=== PATIENT | male | born 1995 | race Caucasian/White ===

== ENCOUNTER 2017-05-13 01:00 | Emergency (ER) | payer OTHER ==
--- NOTE | 2017-05-13 01:04 | EDPHY ---
H & P HPI/ROS: HPI CHIEF COMPLAINT: Itchy rash HISTORY OF PRESENT ILLNESS: Patient otherwise healthy 21-year-old male, he presents emergency room with a pruritic urticaria looking rash diffusely. He denies any trouble swallowing. Denies trouble breathing. Denies chest pain shortness of breath or abdominal pain nausea vomiting. He states that he ate barbecue from [employer] this evening around 8:30 p.m. he developed itching of his skin. He looked down noticed a rash. He has urticaria diffusely. No previous history of allergic reactions. He decided come the emergency room is 1 :15 a.m.. He denies any chest pain shortness of breath trouble swallowing trouble breathing abdominal pain nausea vomiting. Past Medical History: No significant medical history Past Surgical History: Knee surgery Social History: Denies daily use drugs alcohol tobacco. [employer] student Family History: Noncontributory ROS REVIEW OF SYSTEMS: A comprehensive 10 point review of systems is otherwise negative aside from elements mentioned in the history of present illness. Exam Constitutional triage nursing summary reviewed, vital signs reviewed, awake/ alert. Eyes normal conjunctivae and sclera, EOMI, PERRLA. HENT oropharynx is normal. Uvula midline. No swelling. normal inspection, atraumatic, moist mucus membranes, no epistaxis, neck supple/ no meningismus, no raccoon eyes. Respiratory clear to auscultation bilaterally, normal breath sounds, no respiratory distress, no wheezing. Cardiovascular rate normal, regular rhythm, no murmur, no edema, distal pulses normal. Gastrointestinal soft, non-tender, no rebound, no guarding, normal bowel sounds, no distension, no pulsatile mass. Genitourinary no CVA tenderness. Musculoskeletal no midline vertebral tenderness, full range of motion, no calf swelling, no tenderness of extremities, no meningismus, good pulses, neurovascularly intact. Skin diffuse urticaria Neurologic awake, alert and oriented x 3, AAOx3, moves all 4 extremities equally, motor intact, sensory intact, CN II-XII intact, normal cerebellar, normal vision, normal speech. Psychiatric normal mood/affect. Heme/Lymph/Immune no lymphadenopathy. Differential Diagnosis: Includes but is not limited to in a particular order acute allergic reaction, anaphylaxis, food allergy Medical Decision Making: Plan for this patient no evidence of anaphylaxis or severe allergic reaction this time. Patient had an IV established received IV Solu-Medrol Pepcid and Benadryl. Will monitor closely. His rash started 830PM is not progressed but he has diffuse urticaria rash without any airway involvement. Re-evaluation: 0228: Patient resting comfortably no acute distress. He feels much better after IV medications. Rash is greatly improved. Urticaria is improved. No further signs of progression of allergic reaction. He would like to go home. Prednisone for 3 days. Benadryl for 3 days. EpiPen prescription as well. He understands return emergency room if develops worsening symptoms questions or concerns. This includes rebound allergic reaction from food. Source: Patient Constitutional: Initial Vital Signs Temperature (C) 37.0 C 05/13/17 01:05 Heart Rate 85 05/13/17 01:05 Respiratory Rate 18 05/13/17 01:05 Blood Pressure 146/89 H 05/13/17 01:05 O2 Sat (%) 96 05/13/17 01:05 O2 Delivery Mode Room Air Allergies/Adverse Reactions: No Known Allergies Allergy (Unverified 05/13/17 01:04) Home Medications: Medication Instructions Recorded Adderall Xr 25 mg Capsule 05/13/17 EPINEPHRINE [EPIPEN] 0.3 mg IM ONCE #2 syr 05/13/17 Psoriasis Cream 05/13/17 diphenhydrAMINE [Benadryl 25 MG 25 mg PO BID #6 tab 05/13/17 (*)] predniSONE 60 mg PO DAILY #9 tab 05/13/17 Medical Decision Making - Data Points Medications Given: Discontinued Medications Diphenhydramine HCl (Benadryl Injection) 25 mg IVP EDNOW ONE Stop: 05/13/17 01:14 Last Admin: 05/13/17 01:22 Dose: 25 mg Famotidine (Pepcid) 20 mg IVP EDNOW ONE Stop: 05/13/17 01:14 Last Admin: 05/13/17 01:22 Dose: 20 mg Sodium Chloride (Ns) 1,000 mls @ 0 mls/hr IV ONCE ONE PRN Reason: Wide Open Stop: 05/13/17 01:14 Last Admin: 05/13/17 01:22 Dose: 1,000 mls Methylprednisolone Sodium Succinate (Solu-Medrol) 125 mg IVP EDNOW ONE Stop: 05/13/17 01:14 Last Admin: 05/13/17 01:22 Dose: 125 mg Departure - Departure Disposition: Home, Routine, Self-Care Clinical Impression: Urticaria Condition: Good Instructions: Urticaria (ED), Food Allergy (ED), Anaphylaxis (ED) Additional Instructions: 1. Return to the emergency room if he develops any worsening symptoms includes worsening rash trouble breathing trouble eating or swallowing. 2. Prednisone for the next 3 days. 3. Benadryl for the next 3 days 4. EpiPen only if you have severe allergic reaction. Referrals: NONE *PRIMARY CARE P,. [Primary Care Provider] - As per Instructions Prescriptions: diphenhydrAMINE [Benadryl 25 MG (*)] 25 mg PO BID #6 tab EPINEPHRINE [EPIPEN] 0.3 mg IM ONCE #2 syr predniSONE 60 mg PO DAILY #9 tab
[2017-05-13 01:09] VITALS: RESP 18; TEMP 98.6; O2SAT 96
[2017-05-13] MEDS ORDERED: NS 1,000 ML IV ONE (01:13)
[2017-05-13] MEDS ORDERED: FAMOTIDINE 20 MG/2 ML SDV IVP ONE (01:13)
[2017-05-13] MEDS ORDERED: methylPREDNISolone SOD SUCC 125 MG/2 ML VIAL IVP ONE (01:13)
[2017-05-13 02:38] VITALS: BP 135/77; PULSE 88
== END 2017-05-13 02:37 | disposition home or self-care (01) ==
DX: L50.9 Urticaria, unspecified (principal)
CPT/HCPCS: 96374; J1200; J2930